=== PATIENT | male | born 1995 | race African-American/Black ===

== ENCOUNTER 2017-06-02 07:18 | Emergency (ER) | payer OTHER ==
[~2017-06-02] VITALS: Ht 175.3 cm; Wt 68.1 kg
[2017-06-02] MEDS ORDERED: ISOVUE-370 76% 100ML VIAL (Q9967) As Ordered ONE (08:22)
--- NOTE | 2017-06-02 09:05 | REP ---
SOFT-TISSUE NECK CT STUDY WITH IV CONTRAST: HISTORY: Swelling. Question peritonsillar abscess. CT CONTRAST DOSE: 75 mL of intravenous Isovue 370. CT FINDINGS: The tonsillar soft tissues are prominent bilaterally but there is no evidence of tonsillar or peritonsillar abscess. There are bilateral hypertrophied lymph nodes in the anterior cervical chain consistent with reactive lymphadenopathy. The adenoids are not particularly enlarged. No abnormal fluid collection is seen. Thyroid lobes submandibular glands and parotid glands are unremarkable. The visualized paranasal sinuses are clear. No intraorbital abnormality is seen. No bony lesion is appreciated. IMPRESSION: The tonsils are prominent bilaterally and there is bilateral anterior cervical lymphadenopathy consistent with reactive adenopathy. No abscess is seen however. Signed by Gregorio Jessica MD 06/02/2017 03:48 P
[2017-06-02] MEDS ORDERED: CLEO300C2 PO (09:13)
[2017-06-02 09:22] VITALS: BP 122/68
== END 2017-06-02 09:23 | disposition home or self-care (01) ==
LOC: M ED 07:18
DX: J03.90 Acute tonsillitis, unspecified (principal); R59.0 Localized enlarged lymph nodes; R51 Headache
CPT/HCPCS: 70491; 87880; 99283; Q9967

== ENCOUNTER 2018-06-01 11:53 | Emergency (ER) | payer OTHER ==
[2018-06-01 15:31] LABS: CHLAMYDIA DNA AMPLIFICATION NEGATIVE (NEGATIVE); GC DNA AMPLIFICATION NEGATIVE (NEGATIVE)
[2018-06-02 10:20] LABS: HEPATITIS C VIRUS ABY INDEX 0.2 INDEX (<0.8)
[2018-06-02 10:20] LABS: HEPATITIS B SURFACE ANTIBODY POSITIVE (POSITIVE); HEPATITIS B SURFACE ANTIGEN NEGATIVE (NEGATIVE); HIV 1&2 SCREEN CENTAUR NEGATIVE (NEGATIVE)
== END 2018-06-01 14:45 | disposition left against medical advice (07) ==
LOC: M ED 11:53
DX: R30.0 Dysuria (principal)
CPT/HCPCS: 86706

== ENCOUNTER 2018-06-03 10:40 | Emergency (ER) | payer OTHER | END 2018-06-03 13:06 | disposition home or self-care (01) | LOC: M ED 10:40 | DX: N48.1 Balanitis (principal) | CPT/HCPCS: 87186 ==